=== PATIENT | male | born 1935 | race Caucasian/White ===

== ENCOUNTER 2022-12-21 09:00 | Outpatient (RCR) | payer MEDICARE, SELFPAY ==
[2022-12-21 09:20] VITALS: BP 139/82; PULSE 68; RESP 20; TEMP 36.6; O2SAT 96
[2022-12-21] MEDS: MITOMYCIN 40 MG in WATER FOR INJECTION,STERILE 20 ML 20 MG INTRAVESIC (09:35)
--- NOTE | 2022-12-21 09:52 | PC.NURSE ---
0920: Pt. to Amb. for Mitomycin bladder instillation. Consent form reviewed and obtained. Pt.denies questions. VSS. Using sterile technique, #16Fr. cisneros catheter inserted into bladder without difficulty with immediate return of 100cc clear yellow urine. Pt. tolerated with minimal c/o discomfort. Bladder drained completely. Drainage bag removed and CSTD plug inserted into cisneros. 0935: Mitomycin, 40mg instilled into bladder after dual verification with LV Núñez. Instructed pt. to turn side to side and front to back every 15min x 1.5hr. Pt relays understanding. 0950: Pt. without c/o. Denies burning in perineum. Turns as instructed.
--- NOTE | 2022-12-21 10:48 | PC.NURSE ---
Pt. cont. to deny c/o. Denies needs. Cont. to turn as instructed.
[2022-12-21 11:15] VITALS: BP 144/76; PULSE 71; RESP 20; TEMP 36.4; O2SAT 96
--- NOTE | 2022-12-21 11:23 | PC.NURSE ---
1105: Treatment completed at this time. Drainage bag re-connected to Cisneros cath. Urine noted to drain around meatus of penis upon connecting cisneros bag, but ceases after several seconds. 500cc pale purple urine drained from bladder. Cisneros cath removed. Pt. tolerated with minimal c/o. Perineum washed with soap and water. 1115: VSS. Pt. reminded to follow home care instructions as before from prior treatments. Pt. relays understanding. D/c'd amb to home.
== END 2022-12-29 23:59 | disposition home or self-care (01) ==
LOC: INF 09:00
PROVIDERS: Visit Provider Urology
DX: Z85.51 Personal history of malignant neoplasm of bladder (principal)
CPT/HCPCS: 51700; J9280

== ENCOUNTER 2023-01-18 07:38 | Outpatient (RCR) | payer MEDICARE, SELFPAY ==
[2023-01-18 09:00] VITALS: BP 138/81; PULSE 70; RESP 18; TEMP 36.7; O2SAT 98
[2023-01-18] MEDS: MITOMYCIN 40 MG in WATER FOR INJECTION,STERILE 20 ML 20 MG INTRAVESIC (09:28)
--- NOTE | 2023-01-18 09:44 | PC.NURSE ---
Patient is here for mitomycin intravesicular. Patient denies any complaints or concerns. Robison was placed with return or clear yellow urine. Mitomycin instilled at 0930 and is turning every 15 minutes per physician order and is tolerating well.
--- NOTE | 2023-01-18 11:00 | PC.NURSE ---
Treatment completed at this time. Drainage bag re-connected to Cisneros cath. Urine noted to drain around meatus of penis upon connecting cisneros bag. 400cc of pale purple drainage into cisneros bag. Cisneros cath removed. Patient tolerated well. Patient was reminded to follow home care instructions as before from prior treatments and he was discharged home.
== END 2023-01-29 23:59 | disposition home or self-care (01) ==
LOC: INF 07:38
DX: Z85.51 Personal history of malignant neoplasm of bladder (principal)
CPT/HCPCS: 51700; J9280